=== PATIENT | female | born 1985 | race Caucasian/White ===

== ENCOUNTER 2017-04-19 05:03 | Observation (INO) | payer OTHER ==
--- NOTE | 2017-04-15 09:33 | PDGENHP ---
History and Physical - Chief Complaint Bilateral hip pain R>L - History of Present Illness 1. Bilateral~Femoroacetabular impingement (MICHAEL) Cam type, with~resultant labral tear; Right Symptomatic, early OA signs Rt 2. Clinical suspicion of Antetorsion (LEFT) 3. 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 Meyer) without preceding hip scope 4. ~~Post op DVT - currently treated 5. ~~Right GT pain 6. ~ANP Bilateral, improved on the right post DFO HISTORY OF PRESENT ILLNESS: Davidis a 31 y.o.~very ~active female~who I have had the pleasure to consult on today.~I have enjoyed meeting her. She~lives in [place]. 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 ~She~is ; she~has no~children. ~Davidenjoys volleyball, rock climbing, snow boarding, hiking. At 18 yrs Davidstarted having bilateral knee pain and took her a number of years to be evaluated. ~Once seen, CT scans revealed~torsional issues. ~She remembers her torsion being: Right:~46 LEFT: 37 (she did not bring these images in today).~~Mignon notes right thigh and femur pain since her DFO in November [address] Meyer. ~She did not have a hip arthroscopy prior to this surgery. She sustained a DVT~post surgery (she had been on control with genetic risk factors)~, with no~recalled trauma or injury, and with no~previous complaints.~ Daviddoes not have~a known history of hip dysplasia. Presentation today is of~anterior, right sided hip pain and anterior/posterior left sided hip pain. ~~~The hip does~wake her~at night and does not~click and catch on her. Sitting can be uncomfortable~for her. Daviddoes~report suffering from lower back pain episodes. The Right knee pain has somewhat resolved but now has pain in her anterior hip. In the past she broke left inferior ramus during a snowboarding accident. Davidhas~participated in physical therapy and has not~tried other conservative measures. She~has not~received sufficient symptomatic improvement. Davidhas not~utilized medication for pain management. Davidhas used intermittent Tylenol medication. Davidunderstands that she~has a hip and pelvis problem which should be researched and wishes to get a better understanding of her~hip status, followed by an establishment of a treatment strategy, hoping she~would be able to get back to her~well being active life. History: Past medical history: ~ MFTHR and Factor 2 Relevant familial history: None which is relevant Past surgical history: No. Surgery Anesthesia Year Outcome 1 Right DFO GA November 2016 Poor Daviddenies problematic issues with general anesthesia in the past. I have reviewed, verified and agree with the past medical, surgical, family and social history. Current Medications:~has a current medication list which includes the following prescription(s): calcium carbonate-vitamin d3, glutamine, multivitamin w/ minerals, [id number] oil, rivaroxaban, and spironolactone. ALLERGIES:~is allergic to codeine and imitrex [sumatriptan succinate]. Objective: Physical Examination: Davidis 5~feet 9~inches tall and weighs~135~Lbs. Davidis AAO x3; she~is well-nourished, in NAD. Skin is warm and dry. ~Breathing is non-labored. ~CV with RRR by pulse. Abdomen is soft, NTND. Currently, she~walks with a abnormal antalgic gait favoring the left side. Trendelenburg sign is negative~and proprioception~is reduced, right~side. She~presents~with mild~signs of joint laxity.~Beightons Score: 3 Lower spine examination is negative~for sciatic or femoral nerve irritation with negative SLR & femoral stretch tests~(but she is experiencing paresthesias going down to her right van at night). Range of motion of the spine is normal~ for flexion, extension, and rotations, with~associated pain, bilateral lumbar. Strength, Sensation and pulses are normal - bilaterally Ankles and knees exams are normal~and no~mal-alignment is evident. She~has~left~0.5~cm short leg length discrepancy. Thigh circumference is asymmetric~with significant~muscle atrophy~on right~side. Hip ROM (degrees): FL ER At 90~hip FL IR At 90~hip FL AB AD EX IR Neutral hip ER Neutral hip R 100 55 7 35 15 10 30 40 L 110 50 35 35 10 10 55 5 Specific hip and pelvis tests: Quadrant HELENA Roll Add. Longus R +++ +++ Negative +++ L Negative Negative Negative Negative Glut. Med ITB Pos. Imp R Negative 4+/5 strength Negative 4+/5 strength Negative L Negative 5/5 strength Negative 5/5 strength Negative Squeeze test measured normal Bony Symphysis pubis is pain free~to touch while concentric activity of the rectus abdominis, does~produce pain at its insertion on the right side. Ilio Psos specific tests are negative for pain during cycling for both hips~and no snap. HF has poor strength, no pain both hips. RIGHT capsule tenderness Greater trochanteric burse is painful~on the right hip. Piriformis tests: FAIR is negative, with no~local signs of neuritis related to sciatic nerve. SIJs examination is produces pain on both sides~with normal~HELENA in relation and local tenderness. Hamstrings tests are negative~functional contraction and negative~tendinopathy both hips. On a daily basis, the following percentages reflect Mignon's overall total pain : Deep hip: 90% GT: 10% Imaging: Radiology studies which I~have personally reviewed, analyzed and measured are below: XR: AP of the hip and pelvis: Performed in a good~technique Coccyx to pubic symphysis distance 1~cm. 0~degrees [place]~Lines are preserved. Minimal~Pathological signs are seen in the Symphysis Pubis. Minimal~Pathological signs are seen at the Ischial~tuberosity. ~ PF plate with healed PFO. Specific measurements show: NSA~ LCE Sourcil~Angle Sharp's angle Lat. Cam Lat. Pincer C.Over~sign Head~Coverage % ATDmm R N 37 4 41 ++ - - N N L N 35 2 39 ++ - - N N Labral calcification on the right. AP alpha angle: 74 Right 72 Left Pos. wall sign ISS NAD ~~Dysplasia Comments R Negative Negative 20~mm Negative L Negative Negative 22~mm Negative Sclerosis Sup. Lat. OA Cysts Joint Space-WBZ Joint Space-Medial R + Negative Negative 4~mm 3.7~mm L Negative Negative Negative 3.8~mm 4~mm X Table lateral: Anterior cam lesion is seen~on both hips. Alpha Angle: ~ Right 59~dergrees Left 67~degrees Impression and plan:~ Davidis a 31 y.o.~active female~suffering from symptomatic right~hip pain due to~Femoroacetabular impingement (MICHAEL) Cam type, with~resultant labral tear~ causing significant disability to her~and altering~her~sport and life activities. Physical examination, imaging, and her~story correspond with the diagnosis mentioned above. I explained that femoroacetabular impingement (MICHAEL) arises due to a bony or soft tissue conflict between the femur (ball) and acetabulum (socket) caused by an abnormality in the shape of the hip joint. Over time, repetitive impingement can result in damage to the labrum and adjacent surface cartilage within the socket, ultimately giving rise to progressive osteoarthritis of the hip. I explained that although a labral tear can be a source of pain, it is rarely the root of the problem and typically occurs secondary to an underlying abnormality in the shape and mechanics of the hip joint. ~ I reviewed conservative treatment options for MICHAEL including activity modification to avoid positions of impingement, physical therapy, non-steroidal anti-inflammatory medications, and various injections (corticosteroid and PRP) aimed at reducing inflammation in the hip joint or/and preventing dynamic impingement. PRP injections may promote healing and reduce symptoms in certain cases but it will not repair chronically damaged tissue. Although these measures may help to buy time~and reduce current level of symptoms, they are not a definitive solution to the problem given the underlying abnormality in the shape of the hip joint. Patients who have failed conservative management and continue to experience symptoms are candidates for hip arthroscopy, a minimally invasive surgery that can definitively address the underlying problem. Hip arthroscopy typically includes treating the labrum with either repair or reconstruction of the torn labrum; as well as addressing the underlying abnormalities by restoring the normal shape to the hip joint. ~If the cartilage is damaged a Microfracture surgical procedure may also be necessary to help stimulate the growth of fibrocartilage. ~If a patient requires a labral reconstruction or a Microfracture, the initial rehabilitation from the surgery may take longer, but the nursing home results are typically favorable. I reviewed the technical aspects of hip arthroscopy including risks, benefits, and expected course of recovery. Mignon~understands that hip arthroscopy is a minimally invasive outpatient procedure carried out through small incisions on the outer aspect of the hip joint. During surgery, the labral tear will be identified and either repaired or reconstructed~using bone anchors and suture material. Additionally, any excessive bone will be removed with a high-speed bree to reshape the hip joint and restore normal anatomy. Risks include infection, bleeding, injury to nearby nerves or vessels, stiffness, persistent pain, instability, venous thromboembolic disease, and traction related complications including temporary foot numbness. Rarely, revision surgery may be required to address these problems. Overall recovery takes approximately 4~~ 8~months depending on the extent of damage and degree of repair. In the event that the labral tissue quality is inadequate for successful repair and healing, Davidunderstands that a labral reconstruction will be performed. This procedure entails placing a cadaver tissue graft within the hip joint and stabilizing it with bone anchors to build a new labrum. The overall recovery time for labral reconstruction is similar to that of labral repair, although the surgical procedure takes longer to perform. At this time I think she is suffering from Right MICHAEL which is a combination of large cam lesion and the current (post correction) femoral version. I would suggest addressing the MICHAEL and labral tears before proceeding with any other procedure. 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 Davidwill review the info presented. Davidwill contact us if she~wishes to pursue further treatment in the future. At this point in time, prior to right side being addressed and healed, I suggest not to proceed with DFO on the left. I also wish to see her CT to assess objective torsion numbers. Davidis happy with this plan. I have also supplied her~with handouts, outlining the expected surgical treatment and rehab involved. I wish~MignonBruceall the best, ~~ Valeria Camacho ATC History Information I have personally reviewed and updated: medical history Review of Systems Review of Systems: Physical Exam Physical Exam:
[2017-04-19] MEDS ORDERED: ceFAZolin 2 GM/DEXTROSE 100 ML IV ONE (05:47)
[2017-04-19] MEDS ORDERED: ACETAMINOPHEN 500 MG TAB PO ONE (05:47)
[2017-04-19] MEDS ORDERED: PREGABALIN 150 MG CAP PO ONE (05:47)
[2017-04-19] MEDS ORDERED: LIDOCAINE 1% 2 ML INJ ONE (05:59)
[2017-04-19] MEDS ORDERED: LR 1,000 ML IV ONE (06:05)
[2017-04-19] MEDS ORDERED: LIDOCAINE 1% 2 ML INJ ID PRN (06:05)
[2017-04-19] MEDS ORDERED: MIDAZOLAM 2 MG/2 ML VIAL IVP ONE (06:59)
--- NOTE | 2017-04-19 06:59 | PDANEPAE ---
ANE History of Present Illness 31 yo for hip scope h/o DVT ANE Past Medical History - Cardiovascular History Hx Hypertension: No Hx Arrhythmias: No Hx Chest Pain: No Hx Coronary Artery / Peripheral Vascular Disease: No Hx CHF / Valvular Disease: No Hx Palpitations: No - Pulmonary History Hx COPD: No Hx Asthma/Reactive Airway Disease: No Hx Recent Upper Respiratory Infection: No Hx Oxygen in Use at Home: No Hx Sleep Apnea: No Sleep Apnea Screening Result - Last Documented: Negative - Neurologic History Hx Cerebrovascular Accident: No Hx Seizures: No Hx Dementia: No - Endocrine History Hx Diabetes: No - Renal History Hx Renal Disorders: No - Liver History Hx Hepatic Disorders: No - Neurological & Psychiatric Hx Hx Neurological and Psychiatric Disorders: Yes Neurological / Psychiatric History Comment: RIGHT LEG NUMBNESS - Cancer History Hx Cancer: No - Congenital Disorder History Hx Congenital Disorders: No - GI History Hx Gastrointestinal Disorders: Yes Gastrointestinal History Comment: HX OF IBS - Other Health History Other Health History: NONE - Chronic Pain History Chronic Pain: Yes (LOWER BACK INSIDE RIGHT THIGH) - Surgical History Prior Surgeries: 11/17/16 FEMOR ROTATION DEVELOPED DVT'S/PE'S ANE Review of Systems Review of systems is: negative Review of Systems: - Exercise capacity METS (RN): 4 METS ANE Patient History - Allergies Allergies/Adverse Reactions: codeine Allergy (Verified 04/15/17 09:35) sumatriptan [From Imitrex] Allergy (Verified 04/15/17 09:35) - Home Medications Home medications: home medication list seen and reviewed - NPO status NPO Since - Liquids (Date): 04/19/17 NPO Since - Liquids (Time): 03:57 NPO Since - Solids (Date): 04/18/17 NPO Since - Solids (Time): 16:00 - Anes Hx Anes Hx: no prior problems - Smoking Hx Smoking Status: Never smoked - Family Anes Hx Family Hx Anesthesia Complications: NONE ANE Labs/Vital Signs - Vital Signs Blood Pressure: 104/57 Heart Rate: 68 Respiratory Rate: 16 O2 Sat (%): 96 Height: 5 ft 9.5 in Weight: 61.235 kg ANE Physical Exam - Airway Neck exam: FROM Mallampati Score: Class 2 Mouth exam: normal dental/mouth exam - Pulmonary Pulmonary: no respiratory distress - Cardiovascular Cardiovascular: regular rate and rhythym - ASA Status ASA Status: II ANE Anesthesia Plan Anesthesia Plan: general endotracheal anesthesia
[2017-04-19] MEDS ORDERED: BUPIVACAINE 0.25% 30 ML SDV ONE (07:02)
[2017-04-19] MEDS ORDERED: EPINEPHrine 30 MG/30 ML MDV ONE (07:03)
[2017-04-19] MEDS ORDERED: REMIFENTANIL HCL 1 MG VIAL ONE ×3 (07:14→11:36)
[2017-04-19] MEDS ORDERED: fentaNYL 100 MCG/2 ML INJ ONE ×4 (07:14→15:25)
[2017-04-19] MEDS ORDERED: PROPOFOL/EMULSION 500 MG/50 ML BOTTLE IV ONE ×3 (07:15→11:37)
[2017-04-19] MEDS ORDERED: ceFAZolin 1 GM VIAL ONE ×2 (12:10)
[2017-04-19] MEDS ORDERED: ROCURONIUM 50 MG/5 ML VIAL ONE ×2 (12:10)
[2017-04-19] MEDS ORDERED: NALOXONE HCL 0.4 MG/ML INJ IVP PRN (14:03)
[2017-04-19] MEDS ORDERED: ONDANSETRON 4 MG/2 ML VIAL IVP PRN ×3 (14:03→17:49)
[2017-04-19] MEDS ORDERED: ONDANSETRON DISINTEGRATING 4 MG TAB PO PRN (14:23)
[2017-04-19] MEDS: fentaNYL 100 MCG/2 ML INJ IVP PRN ×4 (14:39→15:49)
--- NOTE | 2017-04-19 14:45 | POSTANESTH ---
Post Anesthetic Evaluation Cardiovascular Status: Normal, Stable Respiratory Status: Normal, Stable Level of Consciousness/Mental Status: Can Participate in Eval Pain Control: Adequate, Prn Tx Ordered Nausea/Vomiting Control: Adequate, Prn Tx Ordered Complications Possibly Related to Anesthesia: None Noted
[2017-04-19] MEDS ORDERED: OXYCODONE/APAP 5/325 TAB ONE ×2 (15:12→15:17)
[2017-04-19] MEDS: OXYCODONE/APAP 5/325 TAB PO PRN ×2 (15:20→20:45)
[2017-04-19] MEDS ORDERED: KETOROLAC 30 MG/1 ML SDV ONE (16:16)
[2017-04-19] MEDS ORDERED: KETOROLAC 30 MG/1 ML SDV IVP ONE (16:30)
[2017-04-19] MEDS ORDERED: HYDROmorphONE/DILAUDID 1 MG/ML INJ ONE (16:39)
[2017-04-19] MEDS: HYDROmorphONE/DILAUDID 1 MG/ML INJ IVP PRN ×2 (16:40→16:50)
[2017-04-19] MEDS ORDERED: DIAZEPAM 5 MG TAB ONE (17:06)
[2017-04-19] MEDS ORDERED: DIAZEPAM 5 MG TAB PO ONE (17:15)
[2017-04-19] MEDS ORDERED: HYDROmorphONE/DILAUDID 1 MG/ML INJ IVP PRN (17:49)
[2017-04-19] MEDS ORDERED: diphenhydrAMINE 25 MG CAP PO PRN (17:57)
[2017-04-20] MEDS: oxyCODONE IR 5 MG TAB PO PRN ×3 (00:44→12:33)
[2017-04-20] MEDS: DIAZEPAM 5 MG TAB PO PRN ×2 (00:44→09:27)
[2017-04-20] MEDS: OXYCODONE/APAP 5/325 TAB PO PRN (04:29)
[2017-04-20 08:20] VITALS: RESP 14
[2017-04-20] MEDS ORDERED: RIVAROXABAN 20 MG TAB PO SCH (09:00)
[2017-04-20 11:59] VITALS: BP 102/64; PULSE 64; TEMP 98.3; O2SAT 94
--- NOTE | 2017-04-20 14:38 | ASDISCHSUM ---
Discharge Information Plan Status:Home with No Needs Medically Cleared to Leave: Discharge Date:04/20/2017 01:15 PM CM D/C Disposition:Home, Routine, Self-Care ADT D/C Disposition:Home, Routine, Self-Care Projected Discharge Date:04/20/2017 01:15 PM Transportation at D/C: Discharge Delay Reason: Follow-Up Date:04/20/2017 01:15 PM Discharge Slot: Final Diagnosis: Placement Information Patient Contact Information Contact Name:INES Relationship:Michael Address: Work Phone: City: [facility] Phone: State/Zip Code: Email: Financial Information Financial Class:HMO and PPO Plans Primary Plan Desc:[employer] PPO POS HMO SIG ADM Primary Plan Number:[id number] Secondary Plan Desc: Secondary Plan Number: Assessment Information Intervention Information
== END 2017-04-20 13:15 | disposition home or self-care (01) ==
LOC: FSGY 05:03 → F3N 17:49
PROVIDERS: ADMIT Orthopaedic Surgery Sports Medicine; ATTEND Orthopaedic Surgery Sports Medicine
PROC: 0SB94ZZ Excision of Right Hip Joint, Percutaneous Endoscopic Approach (ICD-10-PCS; principal; 2017-04-19 07:15)
PROC: 0SBB4ZZ Excision of Left Hip Joint, Percutaneous Endoscopic Approach (ICD-10-PCS; principal; 2017-04-19 07:15)
PROC: 0SQB4ZZ Repair Left Hip Joint, Percutaneous Endoscopic Approach (ICD-10-PCS; principal; 2017-04-19 07:15)
PROC: 0SQ94ZZ Repair Right Hip Joint, Percutaneous Endoscopic Approach (ICD-10-PCS; principal; 2017-04-19 07:15)
DX: M25.851 Other specified joint disorders, right hip (principal); M25.852 Other specified joint disorders, left hip; M21.862 Other specified acquired deformities of left lower leg
CPT/HCPCS: 29916; 76001; C1769; G0378; C1713; J0690; J1170; J1885; J2250; J2704; J3010

== ENCOUNTER 2017-08-23 10:59 | Inpatient (IN) | payer OTHER ==
--- NOTE | 2017-08-20 09:00 | PDGENHP ---
History and Physical - Chief Complaint Left Hip pain - History of Present Illness Diagnosis: 1. Bilateral~Femoroacetabular impingement (MICHAEL) Cam type, with~resultant labral tear; Right Symptomatic, early OA signs Rt 2. Clinical suspicion of Antetorsion (LEFT) 3. 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 Meyer) without preceding hip scope 4. ~~Post op DVT - currently treated 5. ~~Right GT pain 6. ~ANP Bilateral, improved on the right post DFO HISTORY OF PRESENT ILLNESS: Davidis a 31 y.o.~very ~active female~who I have had the pleasure to consult on today. I have enjoyed meeting her. She~lives in [place]. 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 ~She~is ; she~has no~children. ~Davidenjoys volleyball, rock climbing, snow boarding, hiking. At 18 yrs Davidstarted having bilateral knee pain and took her a number of years to be evaluated. ~Once seen, CT scans revealed~torsional issues. ~She remembers her torsion being: Right:~46 LEFT: 37 (she did not bring these images in today).~~Mignon notes right thigh and femur pain since her DFO in November [address] Meyer. ~She did not have a hip arthroscopy prior to this surgery. She sustained a DVT~post surgery (she had been on control with genetic risk factors)~, with no~recalled trauma or injury, and with no~previous complaints. Daviddoes not have~a known history of hip dysplasia. Presentation today is of anterior, right sided hip pain and anterior/posterior left sided hip pain. ~~~The hip does~wake her~at night and does not~click and catch on her. Sitting can be uncomfortable~for her. Daviddoes~report suffering from lower back pain episodes. The Right knee pain has somewhat resolved but now has pain in her anterior hip. In the past she broke left inferior ramus during a snowboarding accident. Davidhas~participated in physical therapy and has not~tried other conservative measures. She~has not~received sufficient symptomatic improvement. Davidhas not~utilized medication for pain management. Davidhas used intermittent Tylenol medication. Davidunderstands that she~has a hip and pelvis problem which should be researched and wishes to get a better understanding of her~hip status, followed by an establishment of a treatment strategy, hoping she~would be able to get back to her~well being active life. History: Past medical history: ~ MFTHR and Factor 2 Relevant familial history: None which is relevant Past surgical history: No. Surgery Anesthesia Year Outcome 1 Right DFO GA November 2016 Poor Daviddenies problematic issues with general anesthesia in the past. I have reviewed, verified and agree with the past medical, surgical, family and social history. Current Medications:~has a current medication list which includes the following prescription(s): calcium carbonate-vitamin d3, glutamine, multivitamin w/ minerals, heclb-2-jpx-epa-fish oil, rivaroxaban, and spironolactone. ALLERGIES:~is allergic to codeine and imitrex [sumatriptan succinate]. Objective: Physical Examination: Davidis 5~feet 9~inches tall and weighs 135~Lbs. Davidis AAO x3; she~is well-nourished, in NAD. Skin is warm and dry. ~Breathing is non-labored. ~CV with RRR by pulse. Abdomen is soft, NTND. Currently, she~walks with a abnormal antalgic gait favoring the left side. Trendelenburg sign is negative~and proprioception is reduced, right~side. She~presents with mild~signs of joint laxity. Beightons Score: 3 Lower spine examination is negative~for sciatic or femoral nerve irritation with negative SLR &~femoral stretch tests (but she is experiencing paresthesias going down to her right van at night). Range of motion of the spine is normal~ for flexion, extension, and rotations, with~associated pain, bilateral lumbar. Strength, Sensation and pulses are normal - bilaterally Ankles and knees exams are normal~and no~mal-alignment is evident. She~has~left~0.5~cm short leg length discrepancy. Thigh circumference is asymmetric~with significant~muscle atrophy~on right~side. Hip ROM (degrees): FL ER At 90~hip FL IR At 90~hip FL AB AD EX IR Neutral hip ER Neutral hip R 100 55 7 35 15 10 30 40 L 110 50 35 35 10 10 55 5 Specific hip and pelvis tests: Quadrant HELENA Roll Add. Longus R +++ +++ Negative +++ L Negative Negative Negative Negative Glut. Med ITB Pos. Imp R Negative 4+/5 strength Negative 4+/5 strength Negative L Negative 5/5 strength Negative 5/5 strength Negative Squeeze test measured normal Bony Symphysis pubis is pain free~to touch while concentric activity of the rectus abdominis, does~produce pain at its insertion on the right side. Ilio Psos specific tests are negative for pain during cycling for both hips~and no snap. HF has poor strength, no pain both hips. RIGHT capsule tenderness Greater trochanteric burse is painful~on the right hip. Piriformis tests: FAIR is negative, with no~local signs of neuritis related to sciatic nerve. SIJs examination is produces pain on both sides~with normal~HELENA in relation and local tenderness. Hamstrings tests are negative~functional contraction and negative~tendinopathy both hips. On a daily basis, the following percentages reflect Mignon's overall total pain : Deep hip: 90% GT: 10% Imaging: Radiology studies which I have personally reviewed, analyzed and measured are below: XR: AP of the hip and pelvis: Performed in a good~technique Coccyx to pubic symphysis distance 1~cm. 0~degrees [place] Lines are preserved. Minimal~Pathological signs are seen in the Symphysis Pubis. Minimal~Pathological signs are seen at the Ischial tuberosity. ~ PF plate with healed PFO. Specific measurements show: NSA~ LCE Sourcil~Angle Sharp's angle Lat. Cam Lat. Pincer C.Over~sign Head~Coverage % ATDmm R N 37 4 41 ++ - - N N L N 35 2 39 ++ - - N N Labral calcification on the right. AP alpha angle: 74 Right 72 Left Pos. wall sign ISS NAD ~~Dysplasia Comments R Negative Negative 20~mm Negative L Negative Negative 22~mm Negative Sclerosis Sup. Lat. OA Cysts Joint Space-WBZ Joint Space-Medial R + Negative Negative 4~mm 3.7~mm L Negative Negative Negative 3.8~mm 4~mm X Table lateral: Anterior cam lesion is seen~on both hips. Alpha Angle: ~ Right 59~dergrees Left 67~degrees Impression and plan: Davidis a 31 y.o.~active female~suffering from symptomatic right~hip pain due to~Femoroacetabular impingement (MICHAEL) Cam type, with~resultant labral tear~ causing significant disability to her~and altering her~sport and life activities. Physical examination, imaging, and her~story correspond with the diagnosis mentioned above. I explained that femoroacetabular impingement (MICHAEL) arises due to a bony or soft tissue conflict between the femur (ball) and acetabulum (socket) caused by an abnormality in the shape of the hip joint. Over time, repetitive impingement can result in damage to the labrum and adjacent surface cartilage within the socket, ultimately giving rise to progressive osteoarthritis of the hip. I explained that although a labral tear can be a source of pain, it is rarely the root of the problem and typically occurs secondary to an underlying abnormality in the shape and mechanics of the hip joint. ~ I reviewed conservative treatment options for MICHAEL including activity modification to avoid positions of impingement, physical therapy, non-steroidal anti-inflammatory medications, and various injections (corticosteroid and PRP) aimed at reducing inflammation in the hip joint or/and preventing dynamic impingement. PRP injections may promote healing and reduce symptoms in certain cases but it will not repair chronically damaged tissue. Although these measures may help to buy time and reduce current level of symptoms, they are not a definitive solution to the problem given the underlying abnormality in the shape of the hip joint. Patients who have failed conservative management and continue to experience symptoms are candidates for hip arthroscopy, a minimally invasive surgery that can definitively address the underlying problem. Hip arthroscopy typically includes treating the labrum with either repair or reconstruction of the torn labrum; as well as addressing the underlying abnormalities by restoring the normal shape to the hip joint. ~If the cartilage is damaged a Microfracture surgical procedure may also be necessary to help stimulate the growth of fibrocartilage. ~If a patient requires a labral reconstruction or a Microfracture, the initial rehabilitation from the surgery may take longer, but the usp results are typically favorable. I reviewed the technical aspects of hip arthroscopy including risks, benefits, and expected course of recovery. Davidunderstands that hip arthroscopy is a minimally invasive outpatient procedure carried out through small incisions on the outer aspect of the hip joint. During surgery, the labral tear will be identified and either repaired or reconstructed~using bone anchors and suture material. Additionally, any excessive bone will be removed with a high-speed bree to reshape the hip joint and restore normal anatomy. Risks include infection, bleeding, injury to nearby nerves or vessels, stiffness, persistent pain, instability, venous thromboembolic disease, and traction related complications including temporary foot numbness. Rarely, revision surgery may be required to address these problems. Overall recovery takes approximately 4~ 8~months depending on the extent of damage and degree of repair. In the event that the labral tissue quality is inadequate for successful repair and healing, Davidunderstands that a labral reconstruction will be performed. This procedure entails placing a cadaver tissue graft within the hip joint and stabilizing it with bone anchors to build a new labrum. The overall recovery time for labral reconstruction is similar to that of labral repair, although the surgical procedure takes longer to perform. At this time I think she is suffering from Right MICHAEL which is a combination of large cam lesion and the current (post correction) femoral version. I would suggest addressing the MICHAEL and labral tears before proceeding with any other procedure. 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 Davidwill review the info presented. Davidwill contact us if she~wishes to pursue further treatment in the future. At this point in time, prior to right side being addressed and healed, I suggest not to proceed with DFO on the left. I also wish to see her CT to assess objective torsion numbers. Davidis happy with this plan. I have also supplied her~with handouts, outlining the expected surgical treatment and rehab involved. I wish~Davidall the best, ~~ Valeria Camacho, ATC History Information - Allergies/Home Medication List Allergies/Adverse Reactions: codeine Allergy (Verified 07/16/17 14:44) Hives sumatriptan [From Imitrex] Allergy (Verified 07/16/17 14:44) Anaphylaxis Home Medications: Multivitamin [One Daily Multivitamin] 1 each PO DAILY 04/19/17 [Last Taken 04/11] Rivaroxaban [Xarelto] 20 mg PO DAILY18 PRN 04/19/17 [Last Taken 04/11/17] Minocycline HCl [Minocin 50 mg (*)] 50 mg PO BID 07/16/17 [Last Taken Unknown] Spironolactone [Aldactone 50 MG (RX)] 100 mg PO DAILY 07/16/17 [Last Taken Unknown] I have personally reviewed and updated: medical history - Social History Smoking Status: Never smoked Review of Systems Review of Systems: Physical Exam Physical Exam:
[~2017-08-23 10:59] MED LIST: TRANEXAMIC ACID 1,000 MG in NS (SYRINGE) 50 ML IV ONE
[2017-08-23] MEDS ORDERED: BUPIVACAINE 0.25% 30 ML SDV ONE (11:06)
[2017-08-23] MEDS ORDERED: ACETAMINOPHEN 500 MG TAB PO ONE (12:14)
[2017-08-23] MEDS ORDERED: SCOPOLAMINE HYDROBROMIDE 1 MG/3 DAYS PATCH TD ONE (12:14)
[2017-08-23] MEDS ORDERED: ceFAZolin 2 GM/SWFI 2 GM/20 ML SYR IVP ONE (12:14)
[2017-08-23] MEDS ORDERED: PREGABALIN 150 MG CAP PO ONE (12:14)
[2017-08-23] MEDS ORDERED: LR 1,000 ML IV ONE (12:31)
[2017-08-23 12:47] LABS: PLATELET COUNT 199 10^3/uL (150-400)
[2017-08-23] MEDS ORDERED: MIDAZOLAM 2 MG/2 ML VIAL IVP ONE (13:19)
--- NOTE | 2017-08-23 13:22 | PDANEPAE ---
ANE History of Present Illness L femoral osteotomy derotational ANE Past Medical History - Cardiovascular History Hx Hypertension: No Hx Arrhythmias: No Hx Chest Pain: No Hx Coronary Artery / Peripheral Vascular Disease: No Hx CHF / Valvular Disease: No Hx Palpitations: No - Pulmonary History Hx COPD: No Hx Asthma/Reactive Airway Disease: No Hx Recent Upper Respiratory Infection: No Hx Oxygen in Use at Home: No Hx Sleep Apnea: No Sleep Apnea Screening Result - Last Documented: Negative Pulmonary History Comment: PE 12/02 - Neurologic History Hx Cerebrovascular Accident: No Hx Seizures: No Hx Dementia: No - Endocrine History Hx Diabetes: No - Renal History Hx Renal Disorders: No - Liver History Hx Hepatic Disorders: No - Neurological & Psychiatric Hx Hx Neurological and Psychiatric Disorders: Yes Neurological / Psychiatric History Comment: RIGHT LEG NUMBNESS - Cancer History Hx Cancer: No - Congenital Disorder History Hx Congenital Disorders: No - GI History Hx Gastrointestinal Disorders: Yes Gastrointestinal History Comment: HX OF IBS - Other Health History Other Health History: NONE - Chronic Pain History Chronic Pain: Yes (LOWER BACK INSIDE RIGHT THIGH) - Surgical History Prior Surgeries: 11/17/16 FEMOR ROTATION DEVELOPED DVT'S/PE'S. Bilateral hip MICHAEL ANE Review of Systems Review of systems is: negative Review of Systems: - Exercise capacity METS (RN): 3 METS ANE Patient History - Allergies Allergies/Adverse Reactions: codeine Allergy (Verified 07/16/17 14:44) Hives sumatriptan [From Imitrex] Allergy (Verified 07/16/17 14:44) Anaphylaxis - Home Medications Home medications: home medication list seen and reviewed Home Medications: Multivitamin [One Daily Multivitamin] 1 each PO DAILY 04/19/17 [Last Taken 04/11] Rivaroxaban [Xarelto] 20 mg PO DAILY18 PRN 04/19/17 [Last Taken 04/11/17] Minocycline HCl [Minocin 50 mg (*)] 50 mg PO BID 07/16/17 [Last Taken Unknown] Spironolactone [Aldactone 50 MG (RX)] 100 mg PO DAILY 07/16/17 [Last Taken Unknown] - NPO status NPO Since - Liquids (Date): 08/23/17 NPO Since - Liquids (Time): 08:30 NPO Since - Solids (Date): 08/22/17 NPO Since - Solids (Time): 21:00 - Anes Hx Anes Hx: no prior problems - Smoking Hx Smoking Status: Never smoked - Family Anes Hx Family Anes Hx: none Family Hx Anesthesia Complications: NONE ANE Labs/Vital Signs - Labs Result Diagrams: 08/23/17 12:30 - Vital Signs Blood Pressure: 109/65 Heart Rate: 64 Respiratory Rate: 18 O2 Sat (%): 97 Height: 175.26 cm Weight: 61.235 kg ANE Physical Exam - Airway Neck exam: FROM Mallampati Score: Class 1 Mouth exam: normal dental/mouth exam - Pulmonary Pulmonary: no respiratory distress - Cardiovascular Cardiovascular: regular rate and rhythym - ASA Status ASA Status: I ANE Anesthesia Plan Anesthesia Plan: general endotracheal anesthesia, spinal (morphine spinal for post op pain)
--- NOTE | 2017-08-23 13:32 | PDANEPAE ---
ANE History of Present Illness L femoral osteotomy derotational ANE Past Medical History - Cardiovascular History Hx Hypertension: No Hx Arrhythmias: No Hx Chest Pain: No Hx Coronary Artery / Peripheral Vascular Disease: No Hx CHF / Valvular Disease: No Hx Palpitations: No - Pulmonary History Hx COPD: No Hx Asthma/Reactive Airway Disease: No Hx Recent Upper Respiratory Infection: No Hx Oxygen in Use at Home: No Hx Sleep Apnea: No Sleep Apnea Screening Result - Last Documented: Negative Pulmonary History Comment: PE 12/02 - Neurologic History Hx Cerebrovascular Accident: No Hx Seizures: No Hx Dementia: No - Endocrine History Hx Diabetes: No - Renal History Hx Renal Disorders: No - Liver History Hx Hepatic Disorders: No - Neurological & Psychiatric Hx Hx Neurological and Psychiatric Disorders: Yes Neurological / Psychiatric History Comment: RIGHT LEG NUMBNESS - Cancer History Hx Cancer: No - Congenital Disorder History Hx Congenital Disorders: No - GI History Hx Gastrointestinal Disorders: Yes Gastrointestinal History Comment: HX OF IBS - Other Health History Other Health History: NONE - Chronic Pain History Chronic Pain: Yes (LOWER BACK INSIDE RIGHT THIGH) - Surgical History Prior Surgeries: 11/17/16 FEMOR ROTATION DEVELOPED DVT'S/PE'S. Bilateral hip MICHAEL ANE Review of Systems Review of Systems: - Exercise capacity METS (RN): 3 METS ANE Patient History - Allergies Allergies/Adverse Reactions: codeine Allergy (Verified 07/16/17 14:44) Hives sumatriptan [From Imitrex] Allergy (Verified 07/16/17 14:44) Anaphylaxis - Home Medications Home Medications: Multivitamin [One Daily Multivitamin] 1 each PO DAILY 04/19/17 [Last Taken 04/11] Rivaroxaban [Xarelto] 20 mg PO DAILY18 PRN 04/19/17 [Last Taken 04/11/17] Minocycline HCl [Minocin 50 mg (*)] 50 mg PO BID 07/16/17 [Last Taken Unknown] Spironolactone [Aldactone 50 MG (RX)] 100 mg PO DAILY 07/16/17 [Last Taken Unknown] - NPO status NPO Since - Liquids (Date): 08/23/17 NPO Since - Liquids (Time): 08:30 NPO Since - Solids (Date): 08/22/17 NPO Since - Solids (Time): 21:00 - Smoking Hx Smoking Status: Never smoked - Family Anes Hx Family Hx Anesthesia Complications: NONE ANE Labs/Vital Signs - Labs Result Diagrams: 08/23/17 12:30 - Vital Signs Blood Pressure: 109/65 Heart Rate: 64 Respiratory Rate: 18 O2 Sat (%): 97 Height: 175.26 cm Weight: 61.235 kg
[2017-08-23] MEDS ORDERED: morphINE PF 5 MG/10 ML INJ ONE (15:06)
[2017-08-23] MEDS ORDERED: ONDANSETRON 4 MG/2 ML VIAL ONE (15:11)
[2017-08-23] MEDS ORDERED: DEXAMETHASONE 4 MG/ML VIAL ONE (15:11)
[2017-08-23] MEDS ORDERED: LIDOCAINE 2% 100 MG/5 ML SYR ONE (15:11)
[2017-08-23] MEDS ORDERED: fentaNYL 100 MCG/2 ML INJ ONE (15:11)
[2017-08-23] MEDS ORDERED: PROPOFOL 200 MG/20 ML VIAL ONE (15:11)
[2017-08-23] MEDS ORDERED: PHENYLEPHRINE HCL 100 MCG/ML SYR ONE (15:56)
[2017-08-23] MEDS ORDERED: OXYCODONE/APAP 5/325 TAB PO PRN (18:27)
[2017-08-23] MEDS ORDERED: ONDANSETRON 4 MG/2 ML VIAL IVP PRN ×2 (18:27→22:00)
[2017-08-23] MEDS ORDERED: NALOXONE HCL 0.4 MG/ML INJ IVP PRN ×2 (18:27→22:00)
[2017-08-23] MEDS ORDERED: DEXAMETHASONE 4 MG/ML VIAL IVP PRN (18:27)
[2017-08-23] MEDS ORDERED: ACETAMINOPHEN 500 MG TAB PO PRN (18:27)
[2017-08-23] MEDS ORDERED: fentaNYL 100 MCG/2 ML INJ IVP PRN (18:27)
[2017-08-23] MEDS ORDERED: HYDROmorphONE/DILAUDID 1 MG/ML INJ IVP PRN ×2 (18:27→19:01)
[2017-08-23] MEDS ORDERED: MEPERIDINE 25 MG/ML SYR IVP PRN (18:27)
[2017-08-23] MEDS ORDERED: HYDROCODONE/APAP 5/325 TAB PO PRN (18:27)
[2017-08-23] MEDS ORDERED: BISACODYL 10 MG SUPP PR PRN (19:59)
[2017-08-23] MEDS ORDERED: LACTULOSE 20 GM/30 ML UDCUP PO PRN (19:59)
[2017-08-23] MEDS ORDERED: MAGNESIUM HYDROXIDE 30 ML UDCUP PO PRN (19:59)
--- NOTE | 2017-08-23 20:44 | POSTANESTH ---
Post Anesthetic Evaluation Cardiovascular Status: Normal, Stable, Similar to Pre-Op Cond Respiratory Status: Normal, Stable, Similar to Pre-op Cond. Level of Consciousness/Mental Status: Can Participate in Eval, Mildly Sleepy, Arousable Pain Control: Adequate, Prn Tx Ordered Nausea/Vomiting Control: Adequate, Prn Tx Ordered Complications Possibly Related to Anesthesia: None Noted Notes: I wasted 4.8 MG PF Morphine with Chidi RN, the [employer] would not allow me to waste this medication in the usual manner
--- NOTE | 2017-08-23 20:44 | SUROPNOTE ---
MARÍA Operative Report - Surgery Surgery was performed in [facility] 08/23/17 Diagnoses: Excessive anteversion Lefthip Operation: 1. Sub trochanteric de-rotational~osteotomy Fixed with a locked plate Surgeon: Sam Arora MD Police Officer: Arsenio ROACH Anaesthetic: General + spinal Procedure: General anaesthetic. Antibiotics given, Fluroscopy. Lateral cut distal to greater trochanter and through ITB to expose femur. Partial posterior separation of Vastus lateralis, with the assistance of fluro marking horizontal cut under LT. Fitting of Synthes plate. Fixation of the plate toproximal femur fragment with wires for locking screws into head and neck. Sub trochanteric de-rotationalosteotomy as planned using a reciprocating saw and osteotomes. Fixation of plate with proximal and distal locking screws. VL was repaired back to its origin covering the plate. ITB and outer layers were repaired back with intentional release over the plate, skin was closed with monocryl. Final fluoro shots were obtained. After surgery Patient moved both lower limbs and had no NV compromise. IR prior to surgery - 45 degrees, post 25~degrees. Blood loss- estimated 250ml Post op instructions: Non weight bearing crutches for 4~weeks Pain killers as prescribed PT according to my recommendations upon follow up visits continuous SCD Kind regards, Dr. Sam Arora
[2017-08-23] MEDS ORDERED: RN MESSAGE:REGARDING ANALGESIC ORDERING DR MISC SCH (22:00)
[2017-08-23] MEDS: OXYCODONE/APAP 5/325 TAB PO PRN (23:27)
[2017-08-23] MEDS: DIAZEPAM 2 MG TAB PO PRN (23:27)
[2017-08-24] MEDS: SENNOSIDES/DOCUSATE SODIUM TAB PO SCH ×3 (00:17→21:06)
[2017-08-24] MEDS ORDERED: LR 500 ML IV ONE (01:00)
[2017-08-24] MEDS ORDERED: LR 500 ML IV PRN (02:00)
[2017-08-24] MEDS: RN MESSAGE:DATE/TIME OF ADMIN MISC SCH ×2 (03:49→10:31)
[2017-08-24] MEDS: OXYCODONE/APAP 5/325 TAB PO PRN (04:16)
[2017-08-24] MEDS ORDERED: NALOXONE HCL 0.4 MG/ML INJ IVP PRN (07:26)
[2017-08-24] MEDS: HYDROmorphONE/DILAUDID 6 MG/30 ML PCA IV PRN (09:08)
[2017-08-24] MEDS: RIVAROXABAN 20 MG TAB PO SCH (09:18)
[2017-08-24] MEDS: oxyCODONE IR 5 MG TAB PO SCH ×4 (11:22→21:05)
--- NOTE | 2017-08-24 15:33 | SOAPPROG ---
SOAP Progress Note Assessment/Plan: Assessment: POD 1 s/p derotational femoral osteotomy, pain reasonably controlled as spinal effect wanes Plan:continue po/iv analgesics per ortho 08/24/17 15:30 Subjective: pain worse through the night but improved upon po analgesics, denies VARELA, weakness Objective: neuro grossly intact, moving LE without difficulty Vital Signs Temp Pulse Resp BP Pulse Ox 37.1 C 67 16 85/47 L 99 08/24/17 11:21 08/24/17 11:21 08/24/17 11:21 08/24/17 11:21 08/24/17 11:21 Laboratory Results 08/24/17 04:30 08/24/17 04:30 08/23/17 08/24/17 08/25/17 05:59 05:59 05:59 Intake Total 5050 500 Output Total 2500 600 Balance 2550 -100 - Time Spent With Patient Time Spent With Patient: 10 min ICD10 Worksheet Patient Problems: Problems Problem Status Onset Post-operative pain Acute
--- NOTE | 2017-08-24 16:11 | ASMTCMCOM ---
CM Note CM Note Notes: Pt had planned surgery for hip antetorsion; OT/PT evals pending. Pt could not participate in PT today due to pain. CM to follow for therapy recs. Date Signed: 08/24/2017 04:11 PM Electronically Signed By:SULAIMAN Sharp
[2017-08-24] MEDS: ONDANSETRON DISINTEGRATING 4 MG TAB PO PRN (20:00)
--- NOTE | 2017-08-24 20:40 | SOAPPROG ---
FERN Progress Note Assessment/Plan: Assessment: 1 day post op Left Derotational Femoral Osteotomy Plan: GREEN MARKETER oral analgesia PT/OT Pelvis/femur xray on 08/24/17 20:37 Subjective: Mignon is doing fairly well this evening. Her pain is well controlled with the GREEN MARKETER and oral pain medications. She denies any cp, no sob or nausea. She has been up with PT/OT. Objective: Vital Signs Temp Pulse Resp BP Pulse Ox 38.7 C H 106 H 17 99/52 L 96 08/24/17 20:00 08/24/17 20:00 08/24/17 20:00 08/24/17 20:00 08/24/17 20:00 Laboratory Results 08/24/17 04:30 08/24/17 04:30 08/23/17 08/24/17 08/25/17 05:59 05:59 05:59 Intake Total 5050 1350 Output Total 2500 1800 Balance 2550 -450 Well appearing in NAD Left leg: dressings clean dry intact scattered ecchymosis and edema full ROM of foot and ankle NVI distally - Pending Discharge Pending Discharge Within 48 Hours: Yes Pending Discharge Date: 08/26/17 Pending Discharge Time: 11:00 ICD10 Worksheet Patient Problems: Problems Problem Status Onset Post-operative pain Acute - ICD10 Problem Qualifiers (1) Post-operative pain
[2017-08-25] MEDS: HYDROmorphONE/DILAUDID 6 MG/30 ML PCA IV PRN (00:03)
[2017-08-25] MEDS: DIAZEPAM 2 MG TAB PO PRN ×2 (00:08→14:57)
[2017-08-25] MEDS: RN MESSAGE:DATE/TIME OF ADMIN MISC SCH (02:41)
[2017-08-25] MEDS: oxyCODONE IR 5 MG TAB PO SCH ×6 (02:46→22:50)
[2017-08-25] MEDS ORDERED: HYDROmorphONE/DILAUDID 1 MG/ML INJ IVP PRN (07:37)
--- NOTE | 2017-08-25 07:41 | SOAPPROG ---
SOAP Progress Note Assessment/Plan: Assessment: POD#2 s/p L DFO and doing well Plan: - d/c EDITORIAL CARTOONIST and transition to orals with IV for extreme breakthrough - d/c rosenberg once OOB with PT/OT today - strict bowel regimen; encourage oral intake of fluids and nutrition - PT/OT and encourage OOB BID to TID today - XR tomorrow - goal for D/C to home Wednesday08/25/17 07:38 Subjective: Pain overall controlled, but with highs and lows. No n/t, tolerating orals. No cp or sob. No n/t. Passing flatus. Objective: Vital Signs Temp Pulse Resp BP Pulse Ox 36.9 C 76 18 95/52 L 98 08/25/17 07:36 08/25/17 07:36 08/25/17 07:36 08/25/17 07:36 08/25/17 07:36 Laboratory Results 08/24/17 04:30 08/24/17 04:30 08/24/17 08/25/17 08/26/17 05:59 05:59 05:59 Intake Total 5050 3350 Output Total 2500 7550 Balance 2550 -4200 GEN - NAD, AO ABD - soft, nt, nd BLE - dressing c/d/i - 5/5 dorsi and plantar flexion - SILT L2 - S1 - BCR, WWP ICD10 Worksheet Patient Problems: Problems Problem Status Onset Post-operative pain Acute
[2017-08-25] MEDS: RIVAROXABAN 20 MG TAB PO SCH (08:11)
[2017-08-25] MEDS: SENNOSIDES/DOCUSATE SODIUM TAB PO SCH ×2 (08:11→20:18)
[2017-08-25] MEDS: MINOCYCLINE HCL 50 MG CAP PO SCH ×2 (08:11→20:18)
[2017-08-25] MEDS: ACETAMINOPHEN 325 MG TAB PO PRN ×2 (11:27→22:49)
[2017-08-25] MEDS: oxyCODONE IR 5 MG TAB PO PRN (17:03)
[2017-08-25] MEDS: ASPIRIN EC 81 MG TAB PO SCH (20:18)
[2017-08-25] MEDS: ONDANSETRON 4 MG/2 ML VIAL IVP PRN (21:30)
[2017-08-26] MEDS: oxyCODONE IR 5 MG TAB PO SCH ×6 (03:04→21:06)
[2017-08-26] MEDS: RIVAROXABAN 20 MG TAB PO SCH (09:21)
[2017-08-26] MEDS: MINOCYCLINE HCL 50 MG CAP PO SCH ×2 (09:22→21:05)
[2017-08-26] MEDS: SENNOSIDES/DOCUSATE SODIUM TAB PO SCH ×2 (09:22→21:05)
[2017-08-26] MEDS: POLYETHYLENE GLYCOL 3350 17 GM PKT PO PRN (09:23)
[2017-08-26] MEDS: DIAZEPAM 2 MG TAB PO PRN ×3 (09:29→21:06)
[2017-08-26] MEDS: ASPIRIN EC 81 MG TAB PO SCH (09:30)
[2017-08-27] MEDS: oxyCODONE IR 5 MG TAB PO SCH ×6 (01:11→21:10)
[2017-08-27] MEDS: DIAZEPAM 2 MG TAB PO PRN ×4 (03:09→22:56)
[2017-08-27] MEDS: RIVAROXABAN 10 MG TAB PO SCH (09:04)
[2017-08-27] MEDS: SENNOSIDES/DOCUSATE SODIUM TAB PO SCH ×2 (09:04→21:09)
[2017-08-27] MEDS: MINOCYCLINE HCL 50 MG CAP PO SCH ×2 (09:04→21:08)
[2017-08-27] MEDS: oxyCODONE IR 5 MG TAB PO PRN (11:14)
[2017-08-27] MEDS: ONDANSETRON DISINTEGRATING 4 MG TAB PO PRN ×2 (11:14→22:56)
--- NOTE | 2017-08-27 15:19 | ASMTCMCOM ---
CM Note CM Note Notes: Anticipate pt will d/c when medically stable. No CM d/c needs identified. CM available for changes/needs. Date Signed: 08/27/2017 03:18 PM Electronically Signed By:SULAIMAN Sharp
[2017-08-27] MEDS: ONDANSETRON 4 MG/2 ML VIAL IVP PRN (15:43)
[2017-08-27] MEDS: ACETAMINOPHEN 325 MG TAB PO PRN (15:47)
--- NOTE | 2017-08-27 16:55 | SOAPPROG ---
SOAP Progress Note Assessment/Plan: Assessment: Plan: 08/27/17 16:55 saw Angelica yesterday POD 3, doing well, NV intact, Xr looks good, pain managed. Ready to go when confident with ADL Dr Arora Objective: Vital Signs Temp Pulse Resp BP Pulse Ox 36.8 C 76 17 98/59 L 95 08/27/17 16:00 08/27/17 16:00 08/27/17 16:00 08/27/17 16:00 08/27/17 16:00 Laboratory Results 08/24/17 04:30 08/24/17 04:30 08/26/17 08/27/17 08/28/17 05:59 05:59 05:59 Intake Total 3900 3300 1200 Output Total 6200 900 Balance -2300 2400 1200 ICD10 Worksheet Patient Problems: Problems Problem Status Onset Post-operative pain Acute
[2017-08-27] MEDS ORDERED: ACET/CAFFEINE/BUTA FIORICET 1 EACH TAB PO PRN (17:33)
--- NOTE | 2017-08-27 21:29 | SOAPPROG ---
SOAP Progress Note Assessment/Plan: Assessment: 4th day post op Left Derotational Femoral Osteotomy Plan: oral analgesia PT/OT D/C tomorrow 08/24/17 20:37 08/27/17 21:26 Subjective: Angelica had too much pain to go home today. She's been up ambulating the halls. She denies any cp, no sob or nausea. Objective: Vital Signs Temp Pulse Resp BP Pulse Ox 36.8 C 76 17 98/59 L 95 08/27/17 16:00 08/27/17 16:00 08/27/17 16:00 08/27/17 16:00 08/27/17 16:00 Laboratory Results 08/24/17 04:30 08/24/17 04:30 08/26/17 08/27/17 08/28/17 05:59 05:59 05:59 Intake Total 3900 3300 1200 Output Total 6200 900 Balance -2300 2400 1200 Well appearing in NAD Left hip: dressing clean dry intact some ecchymosis and edema NVI distally full ROM of foot and ankle - Pending Discharge Pending Discharge Within 24 Hours: Yes Pending Discharge Date: 08/28/17 Pending Discharge Time: 11:00 ICD10 Worksheet Patient Problems: Problems Problem Status Onset Post-operative pain Acute - ICD10 Problem Qualifiers (1) Post-operative pain
[2017-08-28] MEDS: oxyCODONE IR 5 MG TAB PO SCH ×6 (02:26→21:07)
[2017-08-28] MEDS: RIVAROXABAN 10 MG TAB PO SCH (09:34)
[2017-08-28] MEDS: SENNOSIDES/DOCUSATE SODIUM TAB PO SCH ×2 (09:34→21:06)
[2017-08-28] MEDS: MINOCYCLINE HCL 50 MG CAP PO SCH ×2 (09:34→21:07)
[2017-08-28] MEDS ORDERED: RIVAROXABAN 20 MG TAB PO PRN (10:54)
[2017-08-28] MEDS: DIAZEPAM 2 MG TAB PO PRN ×2 (14:36→21:07)
--- NOTE | 2017-08-28 16:18 | SOAPPROG ---
SOAP Progress Note Assessment/Plan: Assessment: POD#5 s/p L DFO and doing well Plan: - getting UA and UCx given symptoms of UTI; will start macrobid BID once specimen collected - continue regular diet - oral pain management - patient staying tonight for social reasons; patient parents did not want to travel in snow to come get her 08/25/17 07:38 08/28/17 16:14 Subjective: pain controlled. having burning with urination for past 2 days patient reports - "feels like uti". no fevers or chills. no cp or sob. no n/v. no n/t. Objective: Vital Signs Temp Pulse Resp BP Pulse Ox 36.8 C 78 14 103/61 95 08/28/17 15:08 08/28/17 15:08 08/28/17 15:08 08/28/17 15:08 08/28/17 15:08 Laboratory Results 08/24/17 04:30 08/24/17 04:30 08/27/17 08/28/17 08/29/17 05:59 05:59 05:59 Intake Total 3300 2700 Output Total 900 Balance 2400 2700 GEN - NAD, AO ABD - soft, nt,nd BLE - dressing c/d/i - 5/5 dorsi and plantar flexion of ankles and toes - SILT L2 - S1 - BCR, WWP ICD10 Worksheet Patient Problems: Problems Problem Status Onset Post-operative pain Acute
[2017-08-28] MEDS: oxyCODONE IR 5 MG TAB PO PRN (16:52)
[2017-08-28] MEDS ORDERED: MINOCYCLINE HCL 50 MG CAP PO SCH (21:00)
[2017-08-28] MEDS ORDERED: NITROFURANTOIN MACROBID 100 MG CAP PO SCH (21:00)
[2017-08-28] MEDS: POLYETHYLENE GLYCOL 3350 17 GM PKT PO PRN (21:05)
[2017-08-29] VITALS: TEMP 98.1; O2SAT 94
[2017-08-29] MEDS: oxyCODONE IR 5 MG TAB PO SCH ×3 (01:53→10:28)
[2017-08-29 07:27] VITALS: BP 102/61; PULSE 88; RESP 14
[2017-08-29] MEDS: ONDANSETRON 4 MG/2 ML VIAL IVP PRN (08:02)
[2017-08-29] MEDS ORDERED: RIVAROXABAN 10 MG TAB PO SCH (08:30)
[2017-08-29] MEDS ORDERED: SPIRONOLACTONE 50 MG TAB PO SCH (09:00)
[2017-08-29] MEDS ORDERED: MULTIVITAMINS 1 EACH TAB PO SCH (09:00)
[2017-08-29] MEDS: SENNOSIDES/DOCUSATE SODIUM TAB PO SCH (09:09)
[2017-08-29] MEDS: MINOCYCLINE HCL 50 MG CAP PO SCH (09:10)
[2017-08-29] MEDS: DIAZEPAM 2 MG TAB PO PRN (09:15)
--- NOTE | 2017-08-29 10:46 | ASMTCMCOM ---
CM Note CM Note Notes: Patient medically cleared to discharge home with out patient therapy. CM available should needs arise. Date Signed: 08/29/2017 10:45 AM Electronically Signed By:Courtney Maza RN
[2017-08-29] MEDS: oxyCODONE IR 5 MG TAB PO PRN (12:00)
== END 2017-08-29 12:24 | disposition home or self-care (01) | DRG 482 ==
LOC: F3N 11:43
PROVIDERS: ADMIT Orthopaedic Surgery Sports Medicine; ATTEND Orthopaedic Surgery
PROC: 0Q870ZZ Division of Left Upper Femur, Open Approach (ICD-10-PCS; 2017-08-23)
PROC: BQ14ZZZ Fluoroscopy of Left Femur (ICD-10-PCS; 2017-08-23)
PROC: 0SSB04Z Reposition Left Hip Joint with Internal Fixation Device, Open Approach (ICD-10-PCS; principal; 2017-08-23 13:00)
DX: Q65.89 Other specified congenital deformities of hip (principal); M25.852 Other specified joint disorders, left hip; Z79.01 Long term (current) use of anticoagulants; Z86.718 Personal history of other venous thrombosis and embolism
CPT/HCPCS: 97116-GP; 97161-GP; 97165-GO; 97530-GP; 97535-GO; C1713; C1769; J0171; J0690; J1100; J1170; J2001; J2250; J2274; J2370; J2405; J2704; J3010

== ENCOUNTER 2017-11-22 09:25 | Observation (INO) | payer OTHER ==
--- NOTE | 2017-11-21 22:55 | PDGENHP ---
History and Physical - Chief Complaint Right hip pain - History of Present Illness 1. Bilateral~Femoroacetabular impingement (MICHAEL) Cam type, with~resultant labral tear; Right Symptomatic, early OA signs Rt 2. Clinical suspicion of Antetorsion (LEFT) 3. 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 Meyer) without preceding hip scope 4. ~~Post op DVT - currently treated 5. ~~Right GT pain 6. ~ANP Bilateral, improved on the right post DFO HISTORY OF PRESENT ILLNESS: Davidis a 32 y.o.~very ~active female~who I have had the pleasure to consult on today. I have enjoyed meeting her. She~lives in [place]. 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 ~She~is ; she~has no~children. ~Davidenjoys volleyball, rock climbing, snow boarding, hiking. At 18 yrs Davidstarted having bilateral knee pain and took her a number of years to be evaluated. ~Once seen, CT scans revealed~torsional issues. ~She remembers her torsion being: Right:~46 LEFT: 37 (she did not bring these images in today).~~Mignon notes right thigh and femur pain since her DFO in November [address] Meyer. ~She did not have a hip arthroscopy prior to this surgery. She sustained a DVT~post surgery (she had been on control with genetic risk factors)~, with no~recalled trauma or injury, and with no~previous complaints. Daviddoes not have~a known history of hip dysplasia. Presentation today is of anterior, right sided hip pain and anterior/posterior left sided hip pain. ~~~The hip does~wake her~at night and does not~click and catch on her. Sitting can be uncomfortable~for her. Daviddoes~report suffering from lower back pain episodes. The Right knee pain has somewhat resolved but now has pain in her anterior hip. In the past she broke left inferior ramus during a snowboarding accident. Davidhas~participated in physical therapy and has not~tried other conservative measures. She~has not~received sufficient symptomatic improvement. Davidhas not~utilized medication for pain management. Davidhas used intermittent Tylenol medication. Davidunderstands that she~has a hip and pelvis problem which should be researched and wishes to get a better understanding of her~hip status, followed by an establishment of a treatment strategy, hoping she~would be able to get back to her~well being active life. History: Past medical history: ~ MFTHR and Factor 2 Relevant familial history: None which is relevant Past surgical history: No. Surgery Anesthesia Year Outcome 1 Right DFO GA November 2016 Poor Daviddenies problematic issues with general anesthesia in the past. I have reviewed, verified and agree with the past medical, surgical, family and social history. Current Medications:~has a current medication list which includes the following prescription(s): calcium carbonate-vitamin d3, glutamine, multivitamin w/ minerals, pptay-2-sgb-epa-fish oil, rivaroxaban, and spironolactone. ALLERGIES:~is allergic to codeine and imitrex [sumatriptan succinate]. Objective: Physical Examination: Davidis 5~feet 9~inches tall and weighs 135~Lbs. Davidis AAO x3; she~is well-nourished, in NAD. Skin is warm and dry. ~Breathing is non-labored. ~CV with RRR by pulse. Abdomen is soft, NTND. Currently, she~walks with a abnormal antalgic gait favoring the left side. Trendelenburg sign is negative~and proprioception is reduced, right~side. She~presents with mild~signs of joint laxity. Beightons Score: 3 Lower spine examination is negative~for sciatic or femoral nerve irritation with negative SLR &~femoral stretch tests (but she is experiencing paresthesias going down to her right van at night). Range of motion of the spine is normal~ for flexion, extension, and rotations, with~associated pain, bilateral lumbar. Strength, Sensation and pulses are normal - bilaterally Ankles and knees exams are normal~and no~mal-alignment is evident. She~has~left~0.5~cm short leg length discrepancy. Thigh circumference is asymmetric~with significant~muscle atrophy~on right~side. Hip ROM (degrees): FL ER At 90~hip FL IR At 90~hip FL AB AD EX IR Neutral hip ER Neutral hip R 100 55 7 35 15 10 30 40 L 110 50 35 35 10 10 55 5 Specific hip and pelvis tests: Quadrant HELENA Roll Add. Longus R +++ +++ Negative +++ L Negative Negative Negative Negative Glut. Med ITB Pos. Imp R Negative 4+/5 strength Negative 4+/5 strength Negative L Negative 5/5 strength Negative 5/5 strength Negative Squeeze test measured normal Bony Symphysis pubis is pain free~to touch while concentric activity of the rectus abdominis, does~produce pain at its insertion on the right side. Ilio Psos specific tests are negative for pain during cycling for both hips~and no snap. HF has poor strength, no pain both hips. RIGHT capsule tenderness Greater trochanteric burse is painful~on the right hip. Piriformis tests: FAIR is negative, with no~local signs of neuritis related to sciatic nerve. SIJs examination is produces pain on both sides~with normal~HELENA in relation and local tenderness. Hamstrings tests are negative~functional contraction and negative~tendinopathy both hips. On a daily basis, the following percentages reflect Mignon's overall total pain : Deep hip: 90% GT: 10% Imaging: Radiology studies which I have personally reviewed, analyzed and measured are below: XR: AP of the hip and pelvis: Performed in a good~technique Coccyx to pubic symphysis distance 1~cm. 0~degrees [place] Lines are preserved. Minimal~Pathological signs are seen in the Symphysis Pubis. Minimal~Pathological signs are seen at the Ischial tuberosity. ~ PF plate with healed PFO. Specific measurements show: NSA~ LCE Sourcil~Angle Sharp's angle Lat. Cam Lat. Pincer C.Over~sign Head~Coverage % ATDmm R N 37 4 41 ++ - - N N L N 35 2 39 ++ - - N N Labral calcification on the right. AP alpha angle: 74 Right 72 Left Pos. wall sign ISS NAD ~~Dysplasia Comments R Negative Negative 20~mm Negative L Negative Negative 22~mm Negative Sclerosis Sup. Lat. OA Cysts Joint Space-WBZ Joint Space-Medial R + Negative Negative 4~mm 3.7~mm L Negative Negative Negative 3.8~mm 4~mm X Table lateral: Anterior cam lesion is seen~on both hips. Alpha Angle: ~ Right 59~dergrees Left 67~degrees Impression and plan: Davidis a 32 y.o.~active female~suffering from symptomatic right~hip pain due to~Femoroacetabular impingement (MICHAEL) Cam type, with~resultant labral tear~ causing significant disability to her~and altering her~sport and life activities. Physical examination, imaging, and her~story correspond with the diagnosis mentioned above. I explained that femoroacetabular impingement (MICHAEL) arises due to a bony or soft tissue conflict between the femur (ball) and acetabulum (socket) caused by an abnormality in the shape of the hip joint. Over time, repetitive impingement can result in damage to the labrum and adjacent surface cartilage within the socket, ultimately giving rise to progressive osteoarthritis of the hip. I explained that although a labral tear can be a source of pain, it is rarely the root of the problem and typically occurs secondary to an underlying abnormality in the shape and mechanics of the hip joint. ~ I reviewed conservative treatment options for MICHAEL including activity modification to avoid positions of impingement, physical therapy, non-steroidal anti-inflammatory medications, and various injections (corticosteroid and PRP) aimed at reducing inflammation in the hip joint or/and preventing dynamic impingement. PRP injections may promote healing and reduce symptoms in certain cases but it will not repair chronically damaged tissue. Although these measures may help to buy time and reduce current level of symptoms, they are not a definitive solution to the problem given the underlying abnormality in the shape of the hip joint. Patients who have failed conservative management and continue to experience symptoms are candidates for hip arthroscopy, a minimally invasive surgery that can definitively address the underlying problem. Hip arthroscopy typically includes treating the labrum with either repair or reconstruction of the torn labrum; as well as addressing the underlying abnormalities by restoring the normal shape to the hip joint. ~If the cartilage is damaged a Microfracture surgical procedure may also be necessary to help stimulate the growth of fibrocartilage. ~If a patient requires a labral reconstruction or a Microfracture, the initial rehabilitation from the surgery may take longer, but the group home results are typically favorable. I reviewed the technical aspects of hip arthroscopy including risks, benefits, and expected course of recovery. Davidunderstands that hip arthroscopy is a minimally invasive outpatient procedure carried out through small incisions on the outer aspect of the hip joint. During surgery, the labral tear will be identified and either repaired or reconstructed~using bone anchors and suture material. Additionally, any excessive bone will be removed with a high-speed bree to reshape the hip joint and restore normal anatomy. Risks include infection, bleeding, injury to nearby nerves or vessels, stiffness, persistent pain, instability, venous thromboembolic disease, and traction related complications including temporary foot numbness. Rarely, revision surgery may be required to address these problems. Overall recovery takes approximately 4~ 8~months depending on the extent of damage and degree of repair. In the event that the labral tissue quality is inadequate for successful repair and healing, Davidunderstands that a labral reconstruction will be performed. This procedure entails placing a cadaver tissue graft within the hip joint and stabilizing it with bone anchors to build a new labrum. The overall recovery time for labral reconstruction is similar to that of labral repair, although the surgical procedure takes longer to perform. At this time I think she is suffering from Right MICHAEL which is a combination of large cam lesion and the current (post correction) femoral version. I would suggest addressing the MICHAEL and labral tears before proceeding with any other procedure. 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 Davidwill review the info presented. Davidwill contact us if she~wishes to pursue further treatment in the future. At this point in time, prior to right side being addressed and healed, I suggest not to proceed with DFO on the left. I also wish to see her CT to assess objective torsion numbers. Davidis happy with this plan. I have also supplied her~with handouts, outlining the expected surgical treatment and rehab involved. I wish~Davidall the best, ~~ Valeria Camacho, ATC History Information - Allergies/Home Medication List Allergies/Adverse Reactions: codeine Allergy (Verified 11/19/17 15:25) Hives gluten Allergy (Verified 11/19/17 15:25) Milk Containing Products [dairy] Allergy (Verified 11/19/17 15:25) sumatriptan [From Imitrex] Allergy (Verified 11/19/17 15:25) Anaphylaxis Home Medications: Rivaroxaban [Xarelto] 04/19/17 [Last Taken 04/11/17] I have personally reviewed and updated: medical history - Social History Smoking Status: Never smoked Review of Systems Review of Systems: Physical Exam Physical Exam:
[2017-11-22] MEDS ORDERED: ceFAZolin 2 GM/SWFI 2 GM/20 ML SYR IVP ONE (10:02)
[2017-11-22] MEDS ORDERED: ACETAMINOPHEN 500 MG TAB PO ONE (10:02)
[2017-11-22] MEDS ORDERED: PREGABALIN 150 MG CAP PO ONE (10:02)
[2017-11-22] MEDS ORDERED: LR 1,000 ML IV ONE (10:04)
[2017-11-22] MEDS ORDERED: LIDOCAINE 1% 300 MG/30 ML SDV ONE (14:29)
[2017-11-22] MEDS ORDERED: fentaNYL 100 MCG/2 ML INJ ONE ×2 (16:02→19:45)
[2017-11-22] MEDS ORDERED: PROPOFOL 200 MG/20 ML VIAL ONE (16:02)
[2017-11-22] MEDS ORDERED: MIDAZOLAM 2 MG/2 ML VIAL IVP ONE (16:03)
--- NOTE | 2017-11-22 16:05 | PDANEPAE ---
ANE Past Medical History - Cardiovascular History Hx Hypertension: No Hx Arrhythmias: No Hx Chest Pain: No Hx Coronary Artery / Peripheral Vascular Disease: No Hx CHF / Valvular Disease: No Hx Palpitations: No - Pulmonary History Hx COPD: No Hx Asthma/Reactive Airway Disease: No Hx Recent Upper Respiratory Infection: No Hx Oxygen in Use at Home: No Hx Sleep Apnea: No Sleep Apnea Screening Result - Last Documented: Negative Pulmonary History Comment: PE 12/02 - Neurologic History Hx Cerebrovascular Accident: No Hx Seizures: No Hx Dementia: No - Endocrine History Hx Diabetes: No - Renal History Hx Renal Disorders: No - Liver History Hx Hepatic Disorders: No - Neurological & Psychiatric Hx Hx Neurological and Psychiatric Disorders: Yes Neurological / Psychiatric History Comment: RIGHT LEG NUMBNESS - Cancer History Hx Cancer: No - Congenital Disorder History Hx Congenital Disorders: No - GI History Hx Gastrointestinal Disorders: Yes Gastrointestinal History Comment: HX OF IBS - Other Health History Other Health History: upset stomach last 3 mnths - Chronic Pain History Chronic Pain: No - Surgical History Prior Surgeries: 11/17/16 FEMOR ROTATION DEVELOPED DVT'S/PE'S. Bilateral hip MICHAEL ANE Review of Systems Review of Systems: - Exercise capacity METS (RN): 4 METS ANE Patient History - Allergies Allergies/Adverse Reactions: codeine Allergy (Verified 11/19/17 15:25) Hives gluten Allergy (Verified 11/19/17 15:25) Milk Containing Products [dairy] Allergy (Verified 11/19/17 15:25) sumatriptan [From Imitrex] Allergy (Verified 11/19/17 15:25) Anaphylaxis - Home Medications Home Medications: Rivaroxaban [Xarelto] 04/19/17 [Last Taken 10/02/17] MIRENA 11/22/17 [Last Taken 09/23/17] - NPO status NPO Since - Liquids (Date): 11/22/17 NPO Since - Liquids (Time): 09:00 NPO Since - Solids (Date): 11/21/17 NPO Since - Solids (Time): 18:00 - Anes Hx Anes Hx: no prior problems - Smoking Hx Smoking Status: Never smoked - Family Anes Hx Family Hx Anesthesia Complications: NONE ANE Labs/Vital Signs - Vital Signs Blood Pressure: 114/68 Heart Rate: 82 Respiratory Rate: 16 O2 Sat (%): 100 Height: 176.53 cm Weight: 61.235 kg ANE Physical Exam - Airway Mallampati Score: Class 1 Mouth exam: normal dental/mouth exam - Pulmonary Pulmonary: no respiratory distress, no rales or rhonchi, clear to auscultation - Cardiovascular Cardiovascular: regular rate and rhythym, no murmur, rub, or gallop - ASA Status ASA Status: II ANE Anesthesia Plan Anesthesia Plan: GA w LMA
[2017-11-22] MEDS ORDERED: DEXAMETHASONE 4 MG/ML VIAL ONE ×2 (16:10)
[2017-11-22] MEDS ORDERED: ONDANSETRON 4 MG/2 ML VIAL ONE (16:10)
[2017-11-22] MEDS ORDERED: LIDOCAINE 2% JELLY 5 ML TUBE ONE (16:11)
[2017-11-22] MEDS ORDERED: ceFAZolin 1 GM VIAL ONE ×2 (16:40)
[2017-11-22] MEDS ORDERED: MEPERIDINE 25 MG/0.5 ML AMP IVP PRN (16:53)
[2017-11-22] MEDS ORDERED: ONDANSETRON 4 MG/2 ML VIAL IVP PRN ×2 (16:53→19:23)
[2017-11-22] MEDS ORDERED: NALOXONE HCL 0.4 MG/ML INJ IVP PRN (16:53)
[2017-11-22] MEDS ORDERED: ACETAMINOPHEN 500 MG TAB PO PRN (16:53)
[2017-11-22] MEDS ORDERED: oxyCODONE IR 5 MG TAB PO PRN (16:53)
[2017-11-22] MEDS ORDERED: LR 500 ML IV PRN (16:53)
[2017-11-22] MEDS ORDERED: PROMETHAZINE HCL 25 MG/ML INJ IVP PRN (16:53)
[2017-11-22] MEDS ORDERED: HYDROmorphONE/DILAUDID 2 MG/ML INJ ONE (17:02)
[2017-11-22] MEDS ORDERED: HYDROmorphone HCL/NS 0.5 MG/ML SYR IVP PRN (19:23)
[2017-11-22] MEDS ORDERED: KETOROLAC 15 MG/1 ML SDV IVP ONE (19:23)
[2017-11-22] MEDS ORDERED: KETOROLAC 15 MG/1 ML SDV ONE (19:44)
--- NOTE | 2017-11-22 19:45 | POSTANESTH ---
Post Anesthetic Evaluation Cardiovascular Status: Normal, Stable, Similar to Pre-Op Cond Respiratory Status: Normal, Stable, Similar to Pre-op Cond. Level of Consciousness/Mental Status: Can Participate in Eval Pain Control: Inadeq, Add Tx Required (She rates pain 5/10 on arrival. RN treating now.) Nausea/Vomiting Control: Adequate, Prn Tx Ordered Complications Possibly Related to Anesthesia: None Noted
[2017-11-22] MEDS: fentaNYL 100 MCG/2 ML INJ IVP PRN ×2 (19:47→19:56)
[2017-11-22] MEDS: oxyCODONE IR 5 MG TAB PO PRN ×2 (20:45→23:36)
[2017-11-22] MEDS: ONDANSETRON DISINTEGRATING 4 MG TAB PO PRN (21:20)
[2017-11-23] MEDS: ONDANSETRON DISINTEGRATING 4 MG TAB PO PRN (08:16)
[2017-11-23] MEDS: oxyCODONE IR 5 MG TAB PO PRN ×3 (08:17→16:07)
[2017-11-23] MEDS ORDERED: POLYETHYLENE GLYCOL 3350 17 GM PKT PO PRN (08:49)
[2017-11-23] MEDS ORDERED: BISACODYL 10 MG SUPP PR PRN (08:49)
[2017-11-23] MEDS ORDERED: MAGNESIUM HYDROXIDE 30 ML UDCUP PO PRN (08:49)
[2017-11-23] MEDS ORDERED: LACTULOSE 20 GM/30 ML UDCUP PO PRN (08:49)
[2017-11-23] MEDS ORDERED: SENNOSIDES/DOCUSATE SODIUM TAB PO SCH (09:00)
[2017-11-23] MEDS: DIAZEPAM 2 MG TAB PO PRN ×2 (11:03→16:07)
[2017-11-23 11:31] VITALS: BP 85/51
--- NOTE | 2017-11-23 12:01 | ASMTCMCOM ---
CM Note CM Note Notes: Pt medically stable for d/c, no CM d/c needs identified. Date Signed: 11/23/2017 12:00 PM Electronically Signed By:SULAIMAN Sharp
== END 2017-11-23 18:47 | disposition home or self-care (01) ==
LOC: FSGY 09:25 → F3N 19:23
PROVIDERS: ADMIT Orthopaedic Surgery Sports Medicine; ATTEND Orthopaedic Surgery Sports Medicine
PROC: 0QP604Z Removal of Internal Fixation Device from Right Upper Femur, Open Approach (ICD-10-PCS; principal; 2017-11-22 12:15)
DX: T84.84XA Pain due to internal orthopedic prosthetic devices, implants and grafts, initial encounter (principal); M25.851 Other specified joint disorders, right hip; Y79.2 Prosthetic and other implants, materials and accessory orthopedic devices associated with adverse incidents; K58.0 Irritable bowel syndrome with diarrhea
CPT/HCPCS: 20680; 76001; G0378; J0690; J1100; J1170; J1885; J2250; J2405; J2704; J3010